=== PATIENT | male | born 1950 | race Caucasian/White ===

== ENCOUNTER 2017-01-04 09:35 | Emergency (ER) | payer OTHER ==
[~2017-01-04] VITALS: Ht 188 cm; Wt 82.3 kg
[~2017-01-04 09:35] MED LIST: LEFL10TA16; NAPR500T3; PARO-38 PO; TEMA15CA PO
[2017-01-04 09:37] VITALS: Ht 188 cm; Wt 82.3 kg
--- OUTSIDE RECORDS SUMMARY | 2017-01-04 09:38 | XMS REPORT | Continuity of Care Document ---
Author Author [facility] Organization [facility] Address Unknown Phone Unavailable Allergies Active Description Code Type Severity Reaction Onset Reported/Identified Relationship to Patient Clinical Status Yes No Known Medication Allergies NKMA N/A N/A 09/06/2014 Medications Problems Procedures Results Encounters ACCT No. Visit Date/Time Discharge Status Pt. Type Provider Facility Loc./Unit Complaint [id number] 09/06/2014 10:49:00 2013 23:59:00 DIS Outpatient Alexy Maldonado [facility] [place] [facility]/ E.R. F/U; 08-28-14
--- OUTSIDE RECORDS SUMMARY | 2017-01-04 09:39 | XMS REPORT ---
Author Author Aarti Mtz [facility] eClinical[employer] Address Unknown Phone Unavailable Care Team Providers Care Concession Worker Name Role Phone Aarti Mtz CP Unavailable Allergies, Adverse Reactions, Alerts Substance Reaction Event Type N.K.D.A. Info Not Available Non Drug Allergy Problems Problem Type Condition Code Onset Dates Condition Status Assessment Olecranon bursitis, left elbow M70.22 Active Medications Medication Code System Code Instructions Start Date End Date Status Dosage Naproxen [facility] [address]-39 500 MG Orally every 12 hrs 1 tablet as needed Paroxetine HCl [facility] [address]-87 40 MG Orally Once a day 1 tablet in the morning Procedures Procedure Coding System Code Date JOINT ASPIRATIONINJECTION, INTERMEDIATE CPT-4 38669 Sep 29, 2015 OFFICE VISIT, EST-LOW COMPLEXITY (10 MIN.) CPT-4 57158 Sep 29, 2015 Vital Signs Date/Time: Sep 29, 2015 Height 73 in Weight 162.6 lbs Temperature 98.0 F Blood Pressure Diastolic 68 mm Hg Blood Pressure Systolic 104 mm Hg Cardiac Monitoring Heart Rate 88 /min BMI 21.45 Index Respiratory Rate 14 /min Results No Known Results Summary Purpose eClinicalWorks Submission
--- OUTSIDE RECORDS SUMMARY | 2017-01-04 09:39 | XMS REPORT ---
Author Author Aarti Mtz [facility] eClinical[employer] Address Unknown Phone Unavailable Care Team Providers Care Tutor Name Role Phone Aarti Mtz CP Unavailable Allergies, Adverse Reactions, Alerts Substance Reaction Event Type N.K.D.A. Info Not Available Non Drug Allergy Problems Problem Type Condition Code Onset Dates Condition Status Assessment Olecranon bursitis, left elbow M70.22 Active Medications Medication Code System Code Instructions Start Date End Date Status Dosage Naproxen [facility] [address]-89 500 MG Orally every 12 hrs 1 tablet as needed Paroxetine HCl [facility] [address]-25 40 MG Orally Once a day 1 tablet in the morning Procedures Procedure Coding System Code Date AEROBIC-WOUND CULTURE CPT-4 14223 Sep 22, 2015 OFFICE VISIT, EST-LOW COMPLEXITY (15 MIN.) CPT-4 00564 Sep 22, 2015 ANAEROBIC-WOUND CULTURE CPT-4 88719 Sep 22, 2015 JOINT ASPIRATIONINJECTION, INTERMEDIATE CPT-4 07063 Sep 22, 2015 Vital Signs Date/Time: Sep 22, 2015 Height 73 in Weight 161.0 lbs Temperature 98.6 F Blood Pressure Diastolic 64 mm Hg Blood Pressure Systolic 108 mm Hg Cardiac Monitoring Heart Rate 84 /min BMI 21.24 Index Respiratory Rate 12 /min Results Name Result Date Reference Range Unit Abnormality Flag Wound Culture (Aerobic and Anaerobic) ----Wound Culture (Aerobic and Anaerobic) Source: Drainage Collected: 09/22/15 10:46 [id number] Summary Purpose eClinicalWorks Submission
--- OUTSIDE RECORDS SUMMARY | 2017-01-04 09:39 | XMS REPORT | Continuity of Care Document ---
Author Author [facility] Organization [facility] Address Unknown Phone Unavailable Support Name Relationship Address Phone YOGI BENITEZ DO Caregiver [address] [place], [place] [id number] JESUS ALBERTO FUENTES Next Of Kin [address] [place] [address] Insurance Providers Payer Name Policy Number Subscriber Name Relationship [facility] Administration [id number] Lowell Fuentes 17 Self Advance Directives Directive Response Recorded Date/Time Advanced Directives Type None 08/28/14 9:22am Problems Medical Problems Problem Onset Date Status Laceration of leg Unknown Active Medications Medication Dose Route Sig Days/Qty Instructions Order Date Discontinued Date Status Naproxen TWICE A DAY 08/28/14 Active Leflunomide DAILY 08/28/14 Active Temazepam 15 Mg PO BEDTIME Take 1 capsule, by mouth, 1 time a day (at BEDTIME). 08/28/14 Active Paroxetine HCl 50 Mg PO DAILY 08/28/14 Active Social History Social History Problem Response Recorded Date/Time Smoking Status Current every day smoker 08/28/2014 9:36am When did patient START smoking? 15 YEARS OLD 08/28/2014 9:36am Chewing Tobacco Status No 08/28/2014 9:36am Hx Substance Use No 08/28/2014 9:36am Hospital Discharge Instructions No hospital discharge instructions. Plan of Care No plan of care. Functional Status Query Response Date Recorded Physical Hygiene Self August 28, 2014 9:36am Disabilities Visual August 28, 2014 9:36am Devices Used Glasses August 28, 2014 9:36am Dressing Self August 28, 2014 9:36am Ambulation Self August 28, 2014 9:36am Diet Self August 28, 2014 9:36am Mental Status Alert Oriented August 28, 2014 9:36am Disabilities Visual August 28, 2014 9:36am Devices Used Glasses August 28, 2014 9:36am Physical Hygiene Self August 28, 2014 9:36am Dressing Self August 28, 2014 9:36am Ambulation Self August 28, 2014 9:36am Diet Self August 28, 2014 9:36am Allergies, Adverse Reactions, Alerts Allergen Type Severity Reaction Status Last Updated No Known Allergies Active 08/28/14 Immunizations Name Given Type Hx Tetanus, Diptheria, Pertussis UNKNOWN Historical Hx Tetanus, Diptheria, Pertussis UNKNOWN Historical Vital Signs Acute Vital Signs Vital Response Date/Time Temperature (Fahrenheit) 97.4 deg F (96.8 - 99.1) Temperature (Calculated Celsius) 36.09051 degrees C (36.0 - 37.3) Pulse Rate (adult) 82 bpm (60 - 100) Respiratory Rate 18 breaths/min (10 - 20) O2 Sat by Pulse Oximetry 98 % (90 - 100) Blood Pressure 121/76 mm Hg Height 6 ft 2 in Weight 185 lb Body Mass Index 23.0 kg/m^2 Results Name: LOWELL FUENTES Unit #: [id number] : 1950 Sex: M Loc / Svc: ED DOS: 08/28/14 Signed Report #: [id number] DIAGNOSTIC IMAGING REPORT TYPE OF EXAM: TIB-FIB LEFT 2 VIEW Dictated By: GINA ISAAC MD INDICATION: ITS.REASON: trauma TIB-FIB LEFT 2 VIEW: Comparison: None Findings: There is no acute fracture, dislocation or malalignment identified. Overlying material causing some artifact. Impression: No acute osseous abnormality. . Procedures No known history of procedures. Encounters Encounter Location Date/Time Registered Emergency Room [facility] 08/28/14 8:54am Recent Diagnosis
--- OUTSIDE RECORDS SUMMARY | 2017-01-04 09:39 | XMS REPORT ---
Author Author Aarti Mtz Organization eClinicalWorks Address Unknown Phone Unavailable Care Team Providers Care Farmer Vegetable Name Role Phone Aarti Mtz CP Unavailable Allergies, Adverse Reactions, Alerts Substance Reaction Event Type N.K.D.A. Info Not Available Non Drug Allergy Problems Problem Type Condition Code Onset Dates Condition Status Assessment Olecranon bursitis, left elbow M70.22 Active Medications Medication Code System Code Instructions Start Date End Date Status Dosage Paroxetine HCl [facility] [address]-04 40 MG Orally Once a day 1 tablet in the morning Naproxen [facility] [address]-98 500 MG Orally every 12 hrs 1 tablet as needed Procedures Procedure Coding System Code Date JOINT ASPIRATIONINJECTION, INTERMEDIATE CPT-4 26434 Jul 29, 2016 KENALOG 40MG CPT-4 J3301 Jul 29, 2016 OFFICE VISIT, EST-LOW COMPLEXITY (10 MIN.) CPT-4 01326 Jul 29, 2016 INJECTION (plus drug) CPT-4 08743 Jul 29, 2016 Lidocaine injection CPT-4 J2001 Jul 29, 2016 Vital Signs Date/Time: Jul 29, 2016 Temperature 98.1 F Height 73 in Weight 173.8 lbs Blood Pressure Diastolic 74 mm Hg Blood Pressure Systolic 132 mm Hg Cardiac Monitoring Heart Rate 61 /min BMI 22.93 Index Oximetry 92 % Respiratory Rate 16 /min Results No Known Results Summary Purpose eClinicalWorks Submission
--- NOTE | 2017-01-04 09:51 | NUR ---
DR BENITEZ IN
--- OUTSIDE RECORDS SUMMARY | 2017-01-04 09:51 | XMS REPORT | Continuity of Care Document ---
Author Author [facility] Organization [facility] Address Unknown Phone Unavailable Allergies Active Description Code Type Severity Reaction Onset Reported/Identified Relationship to Patient Clinical Status Yes No Known Medication Allergies NKMA N/A N/A 09/06/2014 Medications Problems Procedures Results Encounters ACCT No. Visit Date/Time Discharge Status Pt. Type Provider Facility Loc./Unit Complaint [id number] 09/06/2014 10:49:00 2013 23:59:00 DIS Outpatient Alexy Maldonado [facility] [place] [facility]/ E.R. F/U; 08-28-14
--- OUTSIDE RECORDS SUMMARY | 2017-01-04 09:51 | XMS REPORT | Continuity of Care Document ---
Author Author [facility] Organization [facility] Address Unknown Phone Unavailable Support Name Relationship Address Phone YOGI BENITEZ DO Caregiver [address] [place], [place] [phone] JESUS ALBERTO FUENTES Next Of Kin [address] [place] [address] Insurance Providers Payer Name Policy Number Subscriber Name Relationship [facility] Administration [id number] Lowell Fuentes 17 Self Advance Directives Directive [...] F (96.8 - 99.1) Temperature (Calculated Celsius) 36.18025 degrees C (36.0 - 37.3) Pulse Rate (adult) 82 bpm (60 - 100) Respiratory Rate 18 breaths/min (10 - 20) O2 Sat by Pulse Oximetry 98 % (90 - 100) Blood Pressure 121/76 mm Hg Height 6 ft 2 in Weight 185 lb Body Mass Index 23.0 kg/m^2 Results Name: LOWELL FUENTES Unit #: [id number] : 1950 Sex: M Loc / Svc: ED DOS: 08/28/14 Signed Report #: [id number] DIAGNOSTIC IMAGING REPORT TYPE OF EXAM: TIB-FIB LEFT 2 VIEW Dictated By: GINA ISAAC MD INDICATION: ITS.REASON: trauma TIB-FIB LEFT 2 VIEW: Comparison: None Findings: There is no acute fracture, dislocation or malalignment identified. Overlying material causing some artifact. Impression: No acute osseous abnormality. . Procedures No known history of procedures. Encounters Encounter Location Date/Time Registered Emergency Room [facility] 08/28/14 8:54am Recent Diagnosis
[2017-01-04] MEDS ORDERED: PARO30TA60 PO (10:00)
[2017-01-04] MEDS ORDERED: ORPHENADRINE 60mg/2ml INJECTION IM ONE (10:00)
[2017-01-04] MEDS ORDERED: KETOROLAC 60mg/2ml INJECTION IM ONE (10:00)
[2017-01-04] MEDS ORDERED: BUPR200T PO (10:01)
--- NOTE | 2017-01-04 10:09 | ERPDOC ---
Departure Disposition Decision Date: Jan 04, 2017 Disposition Decision Time: 11:34 Disposition: 01 DISCHARGED HOME, SELF-CARE Impression Impression Impression: Primary Impression: Lumbar strain Encounter type: initial encounter Qualified Codes: S39.012A - Strain of muscle, fascia and tendon of lower back, initial encounter Severity: Mild Condition: Improved Seen By: Physician only Referrals: JORDAN RIVERA (Family) 1 Day Patient Instructions: Acute Low Back Pain (ED), Low Back Strain (ED) Problems/Meds/Labs Reviewed?: Yes Medications reviewed and manag: Yes Additional Instructions: 1. Rest 2. Keep Hydrated 3. Follow with your Doctor 4. Avoid Heavy Lifting 5. Return to the ER as needed Follow up care ordered?: Yes Mental Status: Alert, Oriented Scripts Cyclobenzaprine HCl (Cyclobenzaprine HCl) 10 Mg Tablet 1 TAB PO TID for PAIN &/OR SPASM, #15 TAB 0 Refills Prov: YOGI BENITEZ DO 01/04/17 Ibuprofen (Ibuprofen) 800 Mg Tablet 1 TAB PO Q6-8H Y for PAIN, #20 TAB 0 Refills Prov: YOGI BNEITEZ DO 01/04/17 HPI - Back Pain General Chief Complaint: Low Back Pain or Injury Stated Complaint: LOWER BACKPAIN Time Seen by Provider: 09:39 Source: patient (Patient presents to the ER with low back pain, which apparently began yesterday while moving 80lb Sandbags. Patient has no mid-line vertebral tenderness, but does have mild paravertebral muscle spasm and pain. ) Exam Limitations: no limitations HPI - Back Pain Occurred At: home Onset/Timing: Changing over time Duration: 12-24 hrs Pain/Severity Scale: Now & Worst: 6/10 Severity/Quality: mild Location: paraspinous muscles Radiation: other (No Radiation) Method of Injury/Context: other (Lifting) Modifying Factors: IMPROVES WITH: rest, WORSE WITH: movement Associated Sypmtoms: lower back pain, muscle spasms, DENIES: fever, loss of bladder control, loss of bowel control, numbness in legs/feet, other (No saddle anesthesia), sensory/motor loss, tingling in legs/feet, weakness Hx of Similar Symptoms: Yes Allergies: Coded Allergies: No Known Allergies (Unverified , 01/04/17) Past History Past Medical History Pt denies signifigant PMH Hx Echocardiogram: No Psychological: other Surgical History General: other Family History Family PMH: FOUND: other Social History Smoking Status: Current every day smoker Does patient use chewing tobac: No # of Packs/Tins per Day: 1 Second Hand Exposure: No Substance Use Type: does not use Alcohol Intake: none Housing: house Service: No Current Occupational Status: employed Occupational Hazard: No Advance Directives: Yes Full Code Record Review Pertinent history updated: Yes Review of Systems Constitutional Constitutional: DENIES: chills, fever Eyes Lids/Accessories: DENIES: erythema, swelling ENMT Ears: DENIES: erythema, pain Balance: DENIES: ataxia, vertigo Sinuses: DENIES: congestion, rhinorrhea Mouth/Throat: DENIES: sore throat Cardiovascular Cardiac: DENIES: chest pain, dyspnea on exertion, orthopnea Rhythm/Rate: DENIES: tachycardia Pulmonary Respiratory: DENIES: cough, dyspnea, sputum GI Upper Abdomen: DENIES: nausea, pain, vomiting Lower Abdomen: DENIES: constipation, diarrhea, pain General: DENIES: dysuria Musculoskeletal General: DENIES: cramps, pain, weakness Integumentary Skin: DENIES: color change, itching, rash Neurological General: DENIES: ataxia, change in strength, headache, numbness, poor coordination, seizures, syncope, vertigo, weakness Psychiatric Psychiatric: DENIES: anxiety, depression, nervousness Hematologic/Lymphatic Hematologic/Lymphatic: DENIES: anemia Allergic/Immunological Allergic/Immunoligical: DENIES: sneezing All other Systems All Other Systems: Reviewed and Negative Physical Exam General General Nourishment: well nourished, well developed, appears stated age, adult , thin General Body Habitus: well groomed Vitals and Pain First Documented Vital Signs Date Time Temp Pulse Resp B/P Pulse Ox O2 Delivery O2 Flow Rate FiO2 01/04/17 09:37 97.9 76 16 143/73 97 Room Air Weight: Kilograms: 82.300 Height (feet): 6 Height (inches): 2.00 Triage Pain Scale: RN VS reviewed by Provider: Yes Eyes (brief) Eyes Brief: found: EOMI, PERRL ENMT (brief) ENMT Brief: FOUND: TM clear, TM good light reflex, mucosa moist, NOT FOUND: pharnyx erythema Neck (brief) Neck: FOUND: trachea midline, NOT FOUND: adenopathy, tenderness, tracheal deviation Respiratory (brief) Respiratory: FOUND: clear all [place], equal bilaterally Cardiovascular (brief) Cardiac: FOUND: regular rate, regular rhythm Capillary Refill: <2 sec Pulses: all distal extremities, equal, strong Abdomen (brief) Abdominal Brief: FOUND: bowel normo active x4, soft, NOT FOUND: distended, tender Lymphatic (brief) Lymphatic Brief: NOT FOUND: adenopathy Musculoskeletal (brief) Musculoskeletal Brief: FOUND: spasm (Mild Lumbar paraspinal), tenderness ( Lumbar Paraspinal muscles, without Mid-Line Vertebral Tenderness), NOT FOUND: deformity, loss of motion Integumentary (brief) Integumentary Brief: FOUND: pink, warm Neurologic (brief) Neurological Brief: FOUND: CN w/o gross def to obs, DTR 2/4 all extremities, gait w/o gross def to obs, motor-no gross deficits, sensory-no gross deficits, NOT FOUND: ataxia Psychiatric (brief) Psychiatric Brief: FOUND: alert, attentive, normal affect, oriented Differential Diagnoses Considering: Aortic Dissection, Disc Herniation, Compression Fracture, Fracture , Lumbar Sprain, Lumbar Strain, Thoracic Sprain, Thoracic Strain, Other Progress Results/Orders Orders Procedure Category Date Status Time Ketorolac (Toradol) PHA 01/04/17 Complete 10:00 Orphenadrine (Norflex) PHA 01/04/17 Complete 10:00 Lumbar Spine 2-3 Views RAD 01/04/17 Resulted Medications Current ED Medications Ketorolac Tromethamine (Toradol) 60 mg O ONCE IM Last administered on 10:00; Start 01/04/17 at 10:00; Stop 01/04/17 at 10:01; Status DC Orphenadrine Citrate (Norflex) 60 mg O ONCE IM Last administered on 01/04/17 09:59; Start 01/04/17 at 10:00; Stop 01/04/17 at 10:01; Status DC Progress Progress Patient feeling better following medications and is wanting to go home. Patient to follow with his PCP, will return to the ER as needed Xray Xray : Reason for Exam: Lumbar Back pain Xray: L-Spine Interpretation: Normal, Interpreted by Me, Reviewed Written Report YOGI BENITEZ DO Jan 04, 2017 10:09
--- NOTE | 2017-01-04 10:17 | NUR ---
TO [facility] PER WC
--- NOTE | 2017-01-04 10:29 | NUR ---
RETURNED FROM [facility]
--- NOTE | 2017-01-04 11:30 | NUR ---
DR BENITEZ IN
--- NOTE | 2017-01-04 11:33 | DI ---
Indication: ITS.REASON: Lumbar Paraspinal pain after lifting PROCEDURE: LUMBAR SPINE 3 VIEWS: Encounter: Initial Comparison: None Findings: Alignment of the lumbar spine is within normal limits. No acute fracture or subluxation seen. The vertebral body heights and disk spaces are maintained. Arterial vascular calcifications. No significant degenerative change for age. Impression: No acute osseous abnormality. .
[2017-01-04] MEDS ORDERED: CYCL-375 PO (11:37)
[2017-01-04] MEDS ORDERED: IBUP-1547 PO (11:37)
[2017-01-04 11:48] VITALS: BP 124/68; PULSE 64; RESP 16; TEMP 97.1; O2SAT 97
--- NOTE | 2017-01-04 11:48 | NUR ---
DISMISSAL PT SAYS HE IS MOVING BETTER. DISCHARGED AMB.
== END 2017-01-04 11:48 | disposition home or self-care (01) ==
LOC: ED 09:35
DX: S39.012A Strain of muscle, fascia and tendon of lower back, initial encounter (principal); X50.0XXA Overexertion from strenuous movement or load, initial encounter; Y93.89 Activity, other specified; Y92.009 Unspecified place in unspecified non-institutional (private) residence as the place of occurrence of the external cause; Y99.8 Other external cause status
CPT/HCPCS: 96372